=== PATIENT | female | born 1960 | race Hispanic/Latino ===

== ENCOUNTER 2020-12-08 13:47 | Inpatient (IN) | payer BC ==
[~2020-12-08] VITALS: Ht 170.2 cm; Wt 77.1 kg
[2020-12-08 14:23] LABS: APPEARANCE,URINE Cloudy (CLEAR); BILIRUBIN,URINE Negative (NEGATIVE); COLOR,URINE Yellow (YELLOW); GLUCOSE, URINE (UA) Negative (NEGATIVE); KETONES,URINE Trace mg/dL (NEGATIVE); LEUKOCYTE ESTERASE ,URINE Trace (NEGATIVE); NITRATE,URINE Negative (NEGATIVE); OCCULT BLOOD,URINE Small (NEGATIVE); PROTEIN,URINE Negative (NEGATIVE)
[2020-12-08 14:37] LABS: BACTERIA,URINE Few /HPF (None Seen); RBC,URINE 0-1 /HPF (0-1); WBC,URINE 0-1 /HPF (0-1)
[2020-12-08 14:38] LABS: MUCUS,URINE Few LPF (None Seen); SQUAMOUS EPITHELIAL CELL,UR Moderate /HPF (0-2)
[2020-12-08 14:40] LABS: BASOPHILS % (AUTO) 0.2 % (0.0-5.0); EOSINOPHILS % (AUTO) 0.5 % (0.0-8.0); HEMATOCRIT 39.2 % (36-48); LYMPHOCYTES % (AUTO) 17.4 % (21.0-51.0); MEAN CORPUSCULAR HEMOGLOBIN 28.9 pg (27.0-33.0); MEAN CORPUSCULAR HGB CONC 33.4 g/dL (32.0-36.0); MEAN CORPUSCULAR VOLUME 86.5 fL (79-99); MONOCYTES % (AUTO) 6.1 % (3.0-13.0); NEUTROPHILS % (AUTO) 75.6 % (40.0-77.0); PLATELET COUNT (AUTO) 298 K/uL (130-400); RED BLOOD CELL COUNT(AUTO) 4.53 MIL/uL (4.00-5.50); RED CELL DISTRIBUTION WIDTH 13.9 % (11.0-15.5); WHITE BLOOD COUNT (AUTO) 12.4 K/uL (4.8-10.8)
[2020-12-08] MEDS ORDERED: KETOROLAC 30MG VIAL (30MG/ML) ONE (14:44)
[2020-12-08] MEDS ORDERED: 0.9%NACL 1000ML 1,000 ML IV ONE (14:45)
[2020-12-08 14:52] LABS: CREATININE 0.8 mg/dL (0.5-1.5); POTASSIUM 3.3 mmol/L (3.5-5.1)
[2020-12-08 14:56] LABS: ALBUMIN 3.1 g/dL (3.5-5.0); BILIRUBIN,TOTAL 0.5 mg/dL (0.2-1.0); TOTAL PROTEIN, SERUM 7.5 g/dL (6.0-8.3)
[2020-12-08] MEDS ORDERED: FENTANYL CITRATE PF 50 MCG/1 ML 2ML VIAL ONE (16:54)
[2020-12-08] MEDS ORDERED: SENNOSIDES 8.6 MG TABLET PO SCH (17:30)
[2020-12-08] MEDS: DOCUSATE SODIUM 100 MG CAP PO SCH (17:30)
[2020-12-08] MEDS: ZOSYN 3.375GM+NS 50ML 50 ML IV SCH (17:30)
[2020-12-08] MEDS ORDERED: ACETAMINOPHEN 325 MG TAB PO PRN (17:30)
[2020-12-08] MEDS: LACTATED RINGERS 1000ML 1,000 ML IV SCH (17:30)
[2020-12-08] MEDS ORDERED: POTASSIUM CHLORIDE 10% ELIXIR 20 MEQ/15 ML UDCUP PO SCH (17:30)
[2020-12-08] MEDS ORDERED: FENTANYL CITRATE PF 50 MCG/1 ML 2ML VIAL IVP PRN ×2 (17:30→23:30)
[2020-12-08] MEDS ORDERED: POLYETHYLENE GLYCOL 3350 17 GM POWD.PACK PO SCH (17:30)
[2020-12-08] MEDS ORDERED: POTASSIUM CHLORIDE 10% ELIXIR 20 MEQ/15 ML UDCUP ONE (17:58)
[2020-12-08] MEDS ORDERED: LACTATED RINGERS 1000ML 1,000 ML IV ONE (17:59)
[2020-12-08] MEDS ORDERED: FOLIC ACID 5 MG/ML VIAL IV SCH (18:00)
[2020-12-08] MEDS ORDERED: THIAMINE HCL 100 MG/ML 2ML VIAL IVP SCH (18:00)
[2020-12-08] MEDS ORDERED: THIAMINE HCL 100 MG/ML 2ML VIAL ONE (18:05)
[2020-12-08] MEDS ORDERED: FOLIC ACID 5 MG/ML VIAL ONE (18:06)
[2020-12-08] MEDS ORDERED: POLYETHYLENE GLYCOL 3350 17 GM POWD.PACK ONE (18:14)
[2020-12-08] MEDS ORDERED: DOCUSATE SODIUM 100 MG CAP PO ONE (18:14)
[2020-12-08] MEDS ORDERED: SENNOSIDES 8.6 MG TABLET ONE (18:15)
[2020-12-08] MEDS ORDERED: ZOSYN 3.375GM+NS 50ML 50 ML IV ONE (19:40)
[2020-12-08] MEDS ORDERED: BISACODYL 10 MG SUPP.RECT RC PRN (20:30)
[2020-12-08] MEDS ORDERED: ONDANSETRON 4MG INJ IVP PRN (20:30)
[2020-12-08 20:37] LABS: HEMOGLOBIN A1C 6.4 % (4.0-6.0)
[2020-12-08 20:45] LABS: THYROID STIMULATING HORMONE 1.81 uIU/mL (0.36-3.74)
[2020-12-08] MEDS: FAMOTIDINE 20MG VIAL IV SCH (21:00)
[2020-12-08] MEDS ORDERED: ONDANSETRON 4MG INJ ONE (21:50)
[2020-12-08] MEDS ORDERED: FAMOTIDINE 20MG VIAL IV ONE (21:51)
[2020-12-09] MEDS: ZOSYN 3.375GM+NS 50ML 50 ML IV SCH ×3 (01:30→17:08)
[2020-12-09] MEDS ORDERED: ZOSYN 3.375GM+NS 50ML 50 ML IV ONE (05:02)
[2020-12-09] MEDS ORDERED: POTASSIUM CHLORIDE 10% ELIXIR 20 MEQ/15 ML UDCUP ONE (05:02)
[2020-12-09 05:15] VITALS: BP 126/60
[2020-12-09 06:20] LABS: BASOPHILS % (AUTO) 0.3 % (0.0-5.0); EOSINOPHILS % (AUTO) 1.1 % (0.0-8.0); HEMATOCRIT 35.2 % (36-48); LYMPHOCYTES % (AUTO) 24.5 % (21.0-51.0); MEAN CORPUSCULAR HEMOGLOBIN 28.6 pg (27.0-33.0); MEAN CORPUSCULAR HGB CONC 32.7 g/dL (32.0-36.0); MEAN CORPUSCULAR VOLUME 87.6 fL (79-99); PLATELET COUNT (AUTO) 298 K/uL (130-400); RED BLOOD CELL COUNT(AUTO) 4.02 MIL/uL (4.00-5.50); RED CELL DISTRIBUTION WIDTH 14.1 % (11.0-15.5); WHITE BLOOD COUNT (AUTO) 9.4 K/uL (4.8-10.8)
[2020-12-09 06:42] LABS: CREATININE 0.8 mg/dL (0.5-1.5); MAGNESIUM 2.4 mg/dL (1.80-2.40)
[2020-12-09] MEDS ORDERED: COMPOUND IV REFRIGERATED 1 EACH IVSOLN MISC PRN (08:15)
[2020-12-09 08:29] VITALS: BP 126/63
[2020-12-09] MEDS: FAMOTIDINE 20MG VIAL IV SCH ×2 (08:57→21:17)
[2020-12-09] MEDS: THIAMINE HCL 100 MG/ML 2ML VIAL IVP SCH (08:57)
[2020-12-09] MEDS: KETOROLAC 15MG/ML VIAL (15MG/ML) IV PRN ×2 (08:57→20:30)
[2020-12-09] MEDS: FOLIC ACID 5 MG/ML VIAL IV SCH (09:00)
[2020-12-09 12:23] VITALS: BP 115/58
[2020-12-09] MEDS ORDERED: LACTULOSE 20 GM/30 ML UDCUP PO SCH (14:15)
[2020-12-09] MEDS ORDERED: MAGNESIUM CITRATE 296 ML SOLUTION PO SCH (14:15)
[2020-12-09] MEDS ORDERED: BISACODYL 5 MG TABLET.DR PO SCH (14:15)
[2020-12-09] MEDS ORDERED: PEG 3350/NA SULF,BICARB,CL/KCL 4000 ML SOLN PO SCH (16:00)
[2020-12-09 16:44] VITALS: BP 129/69
[2020-12-09] MEDS: DOCUSATE SODIUM 100 MG CAP PO SCH (17:08)
[2020-12-09] MEDS: LACTATED RINGERS 1000ML 1,000 ML IV SCH ×2 (17:09→20:10)
[2020-12-09 19:25] VITALS: BP 137/74
[2020-12-09 23:53] VITALS: BP 136/76
[2020-12-10] VITALS (18 sets, daily range): BP systolic 103–154; BP diastolic 48–86
[2020-12-10] MEDS: ZOSYN 3.375GM+NS 50ML 50 ML IV SCH ×3 (01:05→19:16)
[2020-12-10] MEDS: KETOROLAC 15MG/ML VIAL (15MG/ML) IV PRN ×2 (02:18→09:05)
[2020-12-10 06:12] LABS: BASOPHILS % (AUTO) 0.2 % (0.0-5.0); HEMATOCRIT 40.4 % (36-48); LYMPHOCYTES % (AUTO) 12.1 % (21.0-51.0); MEAN CORPUSCULAR HEMOGLOBIN 28.5 pg (27.0-33.0); MEAN CORPUSCULAR HGB CONC 32.4 g/dL (32.0-36.0); MEAN CORPUSCULAR VOLUME 87.8 fL (79-99); MONOCYTES % (AUTO) 4.4 % (3.0-13.0); NEUTROPHILS % (AUTO) 82.9 % (40.0-77.0); PLATELET COUNT (AUTO) 392 K/uL (130-400); RED CELL DISTRIBUTION WIDTH 14.1 % (11.0-15.5); WHITE BLOOD COUNT (AUTO) 13.8 K/uL (4.8-10.8)
[2020-12-10 06:28] LABS: CREATININE 0.8 mg/dL (0.5-1.5); POTASSIUM 3.6 mmol/L (3.5-5.1)
[2020-12-10] MEDS ORDERED: COMPOUND IV REFRIGERATED 1 EACH IVSOLN MISC PRN (09:00)
[2020-12-10] MEDS: THIAMINE HCL 100 MG/ML 2ML VIAL IVP SCH (09:05)
[2020-12-10] MEDS: FAMOTIDINE 20MG VIAL IV SCH ×2 (09:05→20:11)
[2020-12-10] MEDS: FOLIC ACID 5 MG/ML VIAL IV SCH (09:06)
[2020-12-10] MEDS: LACTATED RINGERS 1000ML 1,000 ML IV SCH ×2 (09:30→19:26)
[2020-12-10] MEDS ORDERED: HYDROMORPHONE 0.5 MG SYG (0.5MG/0.5ML) IVP PRN (10:45)
[2020-12-10] MEDS ORDERED: PROPOFOL 10 MG/ML 20ML VIAL IV ONE (11:03)
[2020-12-10] MEDS ORDERED: LIDOCAINE HCL 1% 20 ML VIAL ONE (11:03)
[2020-12-10] MEDS: DOCUSATE SODIUM 100 MG CAP PO SCH (19:14)
[2020-12-10] MEDS ORDERED: LACTULOSE 20 GM/30 ML UDCUP ONE (19:44)
[2020-12-10] MEDS ORDERED: MAGNESIUM CITRATE 296 ML SOLUTION ONE ×2 (19:45→20:02)
[2020-12-10] MEDS ORDERED: PEG 3350/NA SULF,BICARB,CL/KCL 4000 ML SOLN PO ONE (20:00)
[2020-12-11] MEDS: ZOSYN 3.375GM+NS 50ML 50 ML IV SCH ×3 (01:35→17:06)
[2020-12-11 04:12] VITALS: BP 135/71
[2020-12-11 06:29] LABS: BASOPHILS % (AUTO) 0.4 % (0.0-5.0); EOSINOPHILS % (AUTO) 1.3 % (0.0-8.0); HEMATOCRIT 37.7 % (36-48); LYMPHOCYTES % (AUTO) 18.3 % (21.0-51.0); MEAN CORPUSCULAR HEMOGLOBIN 28.9 pg (27.0-33.0); MEAN CORPUSCULAR HGB CONC 32.6 g/dL (32.0-36.0); MEAN CORPUSCULAR VOLUME 88.5 fL (79-99); MONOCYTES % (AUTO) 6.8 % (3.0-13.0); NEUTROPHILS % (AUTO) 72.9 % (40.0-77.0); PLATELET COUNT (AUTO) 337 K/uL (130-400); RED BLOOD CELL COUNT(AUTO) 4.26 MIL/uL (4.00-5.50); RED CELL DISTRIBUTION WIDTH 14.2 % (11.0-15.5); WHITE BLOOD COUNT (AUTO) 10.2 K/uL (4.8-10.8)
[2020-12-11 06:35] LABS: CREATININE 0.6 mg/dL (0.5-1.5); POTASSIUM 3.3 mmol/L (3.5-5.1)
[2020-12-11 07:30] VITALS: BP 135/69
[2020-12-11] MEDS ORDERED: POLYETHYLENE GLYCOL 3350 17 GM POWD.PACK PO SCH (08:30)
[2020-12-11] MEDS: LACTULOSE 20 GM/30 ML UDCUP PO SCH ×5 (09:25→17:05)
[2020-12-11] MEDS: THIAMINE HCL 100 MG/ML 2ML VIAL IVP SCH (09:25)
[2020-12-11] MEDS: FAMOTIDINE 20MG VIAL IV SCH ×2 (09:25→20:12)
[2020-12-11] MEDS: FOLIC ACID 5 MG/ML VIAL IV SCH (09:28)
[2020-12-11 11:00] VITALS: BP 136/68
[2020-12-11] MEDS: LACTATED RINGERS 1000ML 1,000 ML IV SCH (12:50)
[2020-12-11] MEDS ORDERED: POTASSIUM CHLORIDE 10% ELIXIR 20 MEQ/15 ML UDCUP PO PRN (14:15)
[2020-12-11 16:00] VITALS: BP 169/78
[2020-12-11] MEDS: DOCUSATE SODIUM 100 MG CAP PO SCH (17:30)
[2020-12-11] MEDS ORDERED: POTASSIUM CHLORIDE 10% ELIXIR 20 MEQ/15 ML UDCUP ONE (20:04)
[2020-12-11] MEDS: POLYETHYLENE GLYCOL 3350 17 GM POWD.PACK PO SCH ×2 (20:12→21:01)
[2020-12-11 21:46] VITALS: BP 132/77
[2020-12-11 23:57] VITALS: BP 127/77
[2020-12-12] VITALS (20 sets, daily range): BP systolic 115–150; BP diastolic 52–74
[2020-12-12] MEDS: ZOSYN 3.375GM+NS 50ML 50 ML IV SCH ×3 (01:44→18:38)
[2020-12-12] MEDS: LACTATED RINGERS 1000ML 1,000 ML IV SCH ×2 (01:45→18:38)
[2020-12-12 06:10] LABS: CREATININE 0.7 mg/dL (0.5-1.5); POTASSIUM 3.7 mmol/L (3.5-5.1)
[2020-12-12] MEDS: FAMOTIDINE 20MG VIAL IV SCH ×2 (08:55→20:22)
[2020-12-12] MEDS: THIAMINE HCL 100 MG/ML 2ML VIAL IVP SCH (08:55)
[2020-12-12] MEDS: KETOROLAC 15MG/ML VIAL (15MG/ML) IV PRN (08:55)
[2020-12-12] MEDS ORDERED: PROPOFOL 10 MG/ML 20ML VIAL IV ONE (12:31)
[2020-12-12] MEDS: FOLIC ACID 5 MG/ML VIAL IV SCH (14:18)
[2020-12-12] MEDS: DOCUSATE SODIUM 100 MG CAP PO SCH (17:30)
[2020-12-12] MEDS: LEVOFLOXACIN 500 MG TABLET PO SCH (18:38)
[2020-12-12] MEDS: METRONIDAZOLE 500 MG TABLET PO SCH (20:22)
[2020-12-12] MEDS: HYDROCORTISONE 25 MG SUPPOSITORY PR SCH (20:22)
[2020-12-12] MEDS ORDERED: MESALAMINE 800 MG PO SCH (21:00)
[2020-12-13] MEDS: LACTATED RINGERS 1000ML 1,000 ML IV SCH (01:04)
[2020-12-13] MEDS: ZOSYN 3.375GM+NS 50ML 50 ML IV SCH ×2 (02:09→09:42)
[2020-12-13 04:04] VITALS: BP 102/54
[2020-12-13 07:44] LABS: BASOPHILS % (AUTO) 0.3 % (0.0-5.0); EOSINOPHILS % (AUTO) 2.8 % (0.0-8.0); LYMPHOCYTES % (AUTO) 22.6 % (21.0-51.0); MEAN CORPUSCULAR HEMOGLOBIN 28.3 pg (27.0-33.0); MEAN CORPUSCULAR HGB CONC 31.9 g/dL (32.0-36.0); MEAN CORPUSCULAR VOLUME 88.7 fL (79-99); PLATELET COUNT (AUTO) 347 K/uL (130-400); RED BLOOD CELL COUNT(AUTO) 4.06 MIL/uL (4.00-5.50); RED CELL DISTRIBUTION WIDTH 13.9 % (11.0-15.5); WHITE BLOOD COUNT (AUTO) 9.4 K/uL (4.8-10.8)
[2020-12-13 07:51] LABS: CREATININE 0.7 mg/dL (0.5-1.5); POTASSIUM 3.4 mmol/L (3.5-5.1)
[2020-12-13 08:00] VITALS: BP 132/59
[2020-12-13] MEDS ORDERED: METR500T PO (09:01)
[2020-12-13] MEDS ORDERED: HYDR25SU38 RC (09:01)
[2020-12-13] MEDS ORDERED: MESA800T9 PO (09:01)
[2020-12-13] MEDS ORDERED: CIPR-278 PO (09:01)
[2020-12-13] MEDS: THIAMINE HCL 100 MG/ML 2ML VIAL IVP SCH (09:42)
[2020-12-13] MEDS: LEVOFLOXACIN 500 MG TABLET PO SCH (09:43)
[2020-12-13] MEDS: METRONIDAZOLE 500 MG TABLET PO SCH (09:43)
[2020-12-13] MEDS: HYDROCORTISONE 25 MG SUPPOSITORY PR SCH (09:43)
[2020-12-13] MEDS: FAMOTIDINE 20MG VIAL IV SCH (09:43)
[2020-12-13] MEDS ORDERED: FOLIC ACID 1 MG TABLET PO SCH (09:45)
[2020-12-13 11:42] VITALS: BP 122/59
== END 2020-12-13 15:30 | disposition home or self-care (01) | DRG 386 ==
LOC: EDH 13:47 → UNDOADMIN 13:48 → EDHIP 13:48 → UNDOADMOB 17:21 → OBSVTOIN 17:21 → INTOOBSV 17:21 → EDHIP 17:21 → 3BH 12-09 03:55 → EDHIP 12-09 03:55 → 3BH 12-09 03:55
PROVIDERS: ADMIT Internal Medicine; ATTEND Internal Medicine
PROC: 0D9670Z Drainage of Stomach with Drainage Device, Via Natural or Artificial Opening (ICD-10-PCS; 2020-12-10)
PROC: 0DJD8ZZ Inspection of Lower Intestinal Tract, Via Natural or Artificial Opening Endoscopic (ICD-10-PCS; 2020-12-10)
PROC: 0DBN8ZX Excision of Sigmoid Colon, Via Natural or Artificial Opening Endoscopic, Diagnostic (ICD-10-PCS; principal; 2020-12-12)
PROC: 0DBM8ZX Excision of Descending Colon, Via Natural or Artificial Opening Endoscopic, Diagnostic (ICD-10-PCS; 2020-12-12)
PROC: 0DBL8ZX Excision of Transverse Colon, Via Natural or Artificial Opening Endoscopic, Diagnostic (ICD-10-PCS; 2020-12-12)
PROC: 0DBK8ZX Excision of Ascending Colon, Via Natural or Artificial Opening Endoscopic, Diagnostic (ICD-10-PCS; 2020-12-12)
PROC: 0DBH8ZX Excision of Cecum, Via Natural or Artificial Opening Endoscopic, Diagnostic (ICD-10-PCS; 2020-12-12)
PROC: 0DBP8ZX Excision of Rectum, Via Natural or Artificial Opening Endoscopic, Diagnostic (ICD-10-PCS; 2020-12-12)
DX: K50.10 Crohn's disease of large intestine without complications (principal); K57.32 Diverticulitis of large intestine without perforation or abscess without bleeding; K55.9 Vascular disorder of intestine, unspecified; K63.3 Ulcer of intestine; K59.00 Constipation, unspecified; Z20.822 Contact with and (suspected) exposure to COVID-19; D72.829 Elevated white blood cell count, unspecified; E87.6 Hypokalemia; K64.1 Second degree hemorrhoids; D64.9 Anemia, unspecified; Z90.49 Acquired absence of other specified parts of digestive tract; Z90.710 Acquired absence of both cervix and uterus; Z88.5 Allergy status to narcotic agent; Z91.041 Radiographic dye allergy status; Z79.899 Other long term (current) drug therapy; Z83.3 Family history of diabetes mellitus; Z82.49 Family history of ischemic heart disease and other diseases of the circulatory system; Z82.3 Family history of stroke; Z80.8 Family history of malignant neoplasm of other organs or systems
CPT/HCPCS: 36415; 45378; 45380; 74018; 74176; 80048; 80053; 80061; 81001; 82150; 82378; 83036; 83690; 83735; 84443; 85025; 87426; 93005; A4606; G0378; J1170; J1885; J2405; J2543; J2704; J3010; J3411; J3490; J7030; J7120; U0003